=== PATIENT | female | born 1945 | race Caucasian/White ===

== ENCOUNTER 2020-05-06 12:53 | Emergency (ER) | payer MEDICARE, MEDICAID ==
[~2020-05-06] VITALS: Ht 157.5 cm; Wt 45.0 kg
[2020-05-06] MEDS ORDERED: TETANUS, DIPHTHERIA, PERTUSSIS VAC/PF 0.5ML (>7YR OLD) IM ONE (13:30)
[2020-05-06] MEDS ORDERED: BACITRACIN ZINC OINT UDPKT TOP ONE (13:30)
[2020-05-06 13:50] VITALS: BP 161/102
== END 2020-05-06 15:05 | disposition home or self-care (01) ==
LOC: ER 12:53
DX: S01.01XA Laceration without foreign body of scalp, initial encounter (principal); H54.40 Blindness, one eye, unspecified eye; G31.89 Other specified degenerative diseases of nervous system; R94.31 Abnormal electrocardiogram [ECG] [EKG]; W01.0XXA Fall on same level from slipping, tripping and stumbling without subsequent striking against object, initial encounter; Y93.F1 Activity, caregiving, bathing; Y92.89 Other specified places as the place of occurrence of the external cause
CPT/HCPCS: 12002; 90471; 90715; 93005; 99284